=== PATIENT | male | born 1990 | race Caucasian/White ===

== ENCOUNTER 2021-08-20 09:30 | Emergency (ER) | payer OTHER ==
[2021-08-20 10:01] VITALS: BMI 28.7
[2021-08-20] MEDS ORDERED: ONDANSETRON 4 MG/2 ML VIAL IVPUSH ONE (10:10)
[2021-08-20] MEDS ORDERED: SODIUM CHLORIDE 1,000 ML IV STA (10:10)
[2021-08-20] MEDS ORDERED: morphine CARPU-JECT 4 MG/1 ML DISP.SYRIN IVPUSH ONE (10:10)
[2021-08-20] MEDS ORDERED: morphine SULFATE 4 MG/ML VIAL ONE (10:52)
[2021-08-20] MEDS ORDERED: ONDANSETRON 4 MG/2 ML VIAL ONE (10:53)
[2021-08-20 11:35] LABS: BASO % 0.3 % (0-2.0); EOS % 1.3 % (0-4.5); HEMATOCRIT 45.6 % (35.4-49); HEMOGLOBIN 15.4 GM/dL (11.7-16.9); LYMPH % 31.2 % (8-40); MCH 26.5 pg (25.7-33.7); MCHC 33.9 g/dl (32.0-35.9); MEAN CELL VOLUME 78.3 fl (80-96); MEAN PLT VOLUME 11.3 fl (7.5-11.1); MONO % 5.9 % (3.8-10.2); NEUT % 61.3 % (42.8-82.8); PLATELET COUNT 116 10^3/uL (134-434); RBC 5.83 M/mm3 (4.00-5.60); RDW 13.7 % (11.9-15.9)
[2021-08-20 12:42] LABS: BLOOD UREA NITROGEN 15.5 mg/dL (7-18); CREATININE 0.8 mg/dL (0.55-1.3); GLUCOSE,RANDOM 85 mg/dL (74-106)
[2021-08-20 12:43] LABS: ALBUMIN 4.4 g/dl (3.4-5.0); CALCIUM 9.4 mg/dL (8.5-10.1); CHLORIDE 106 mmol/L (98-107); CO2 31 mmol/L (21-32); SODIUM 140 mmol/L (136-145)
[2021-08-20 12:44] LABS: ALK PHOS 88 U/L (45-117); BILIRUBIN,TOTAL 0.6 mg/dL (0.2-1); SGOT/AST 16 U/L (15-37); SGPT/ALT 42 U/L (13-61)
[2021-08-20 12:57] LABS: LIPASE 86 U/L (73-393)
[2021-08-20 16:04] VITALS: BP 119/60; PULSE 68; TEMP 98.2
== END 2021-08-20 16:07 | disposition home or self-care (01) ==
LOC: JER 09:30
PROC: 3E033NZ Introduction of Analgesics, Hypnotics, Sedatives into Peripheral Vein, Percutaneous Approach (ICD-10-PCS; principal; 2021-08-20)
PROC: 3E033GC Introduction of Other Therapeutic Substance into Peripheral Vein, Percutaneous Approach (ICD-10-PCS; 2021-08-20)
PROC: 3E0337Z Introduction of Electrolytic and Water Balance Substance into Peripheral Vein, Percutaneous Approach (ICD-10-PCS; 2021-08-20)
DX: R10.12 Left upper quadrant pain (principal)
CPT/HCPCS: 36415; 74177-TC; 80053; 83690; 85025; 96361; 96374; 96375; 99285-25; C9803; Q9967; U0003; U0005